=== PATIENT | male | born 1965 | race Caucasian/White ===

== ENCOUNTER 2017-07-21 11:23 | Outpatient (CLI) | payer MEDICARE ==
[2017-07-21 12:05] LABS: #Basophils 0.2 thou/uL (0.0-0.2); #Eosinphils 0.2 thou/uL (0.0-0.7); #Monocytes 0.5 thou/uL (0.11-0.59); #Neutrophils 4.1 thou/uL (1.40-6.50); %Eosinophils 2.7 % (0.0-10.0); %Lymphocytes 38.2 % (21.0-51.0); %Monocytes 5.7 % (0.0-10.0); %Neutrophils 51.4 % (42.0-75.0); Hemoglobin 14.4 g/dL (14.0-18.0); Mean Corpuscular HGB CONC 31.5 g/dL (32.0-36.0); Mean Corpuscular Hemoglobin 27.5 pg (27.0-31.0); Mean Corpuscular Volume 87.5 fl (80.0-94.0); Platelet Count 261 thou/uL (130-400); Red Blood Cell (RBC) Count 5.23 mill/uL (4.70-6.10); White Blood Cell (WBC) Count 7.9 thou/uL (4.8-10.8)
[2017-07-21 12:24] LABS: ALT (SGPT) 92 U/L (8-55); AST (SGOT) 54 U/L (5-34); Albumin 4.2 g/dL (3.5-5.0); Alkaline Phosphatase 65 U/L (40-150); Anion Gap 10 mmol/L (10-20); BUN (Urea Nitrogen) 13 mg/dL (8.4-25.7); Bilirubin, Total 0.4 mg/dL (0.2-1.2); Calc. Creatinine Clearance 0 mL/min (70-130); Calcium 9.4 mg/dL (7.8-10.44); Carbon Dioxide 28 mmol/L (22-29); Cardiac Risk 4.3 (Less than 4.5); Chloride 106 mmol/L (98-107); Cholesterol 153 mg/dl (< 200 Desired); Estimated GFR-MDRD 87; Globulin 2.9 g/dL (2.4-3.5); Glucose 107 mg/dL (70-105); HDL Cholesterol 36 mg/dL (>60 Neg Risk); LDL Cholesterol, Calculated 95 mg/dL; Lipase 16 U/L (8-78); Potassium 4.6 mmol/L (3.5-5.1); Protein, Total 7.1 g/dL (6.0-8.3); Sodium 139 mmol/L (136-145); Triglycerides 108 mg/dL (Less than 150)
== END 2017-07-21 11:24 | disposition home or self-care (01) ==
LOC: MADLABBHPM 11:23
PROVIDERS: ATTEND Family Medicine
DX: E03.9 Hypothyroidism, unspecified (principal); I10 Essential (primary) hypertension; K52.9 Noninfective gastroenteritis and colitis, unspecified
CPT/HCPCS: 36415; 80053; 80061; 83690; 84443; 85025

== ENCOUNTER 2017-10-16 15:03 | Outpatient (CLI) | payer MEDICARE ==
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
== END 2017-10-16 15:04 | disposition home or self-care (01) ==
LOC: MADRAD 15:03
PROVIDERS: ATTEND Family Medicine
DX: S89.91XA Unspecified injury of right lower leg, initial encounter (principal); M25.461 Effusion, right knee

== ENCOUNTER 2018-03-09 09:12 | Outpatient (CLI) | payer MEDICARE ==
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
== END 2018-03-09 09:13 | disposition home or self-care (01) ==
LOC: MADLABBHPM 09:12
PROVIDERS: ATTEND Family Medicine
DX: M25.532 Pain in left wrist (principal)
CPT/HCPCS: 36415; 84550; 85652

== ENCOUNTER 2018-04-12 11:32 | Outpatient (CLI) | payer MEDICARE ==
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
== END 2018-04-12 11:33 | disposition home or self-care (01) ==
LOC: MADRAD 11:32
PROVIDERS: ATTEND Family Medicine
DX: S69.91XA Unspecified injury of right wrist, hand and finger(s), initial encounter (principal); M19.041 Primary osteoarthritis, right hand

== ENCOUNTER 2020-08-02 21:06 | Emergency (ER) | payer MEDICARE ==
[~2020-08-02 21:06] MED LIST: Iopamidol 370 76% 100 ML VIAL ONE
--- NOTE | 2020-08-02 22:03 | RAD ---
TWO VIEWS CHEST: 08/02/20 PROVIDED CLINICAL HISTORY: Cough. FINDINGS: No comparisons. The cardiac and mediastinal silhouette is within normal limits. No focal consolidation, pleural fluid or pneumothorax apparent. IMPRESSION: No evidence for an acute cardiopulmonary process. POS: AXEL
[2020-08-02 22:05] LABS: #Basophils 0.2 thou/uL (0.0-0.2); #Eosinphils 0.4 thou/uL (0.0-0.7); #Lymphocytes 2.7 thou/uL (1.20-3.40); #Monocytes 0.6 thou/uL (0.11-0.59); #Neutrophils 3.3 thou/uL (1.40-6.50); %Basophils 2.1 % (0.0-1.0); %Eosinophils 6.3 % (0.0-10.0); %Lymphocytes 38.4 % (21.0-51.0); %Monocytes 7.7 % (0.0-10.0); %Neutrophils 45.5 % (42.0-75.0); Hemoglobin 15.1 g/dL (14.0-18.0); Mean Corpuscular HGB CONC 33.9 g/dL (32.0-36.0); Mean Corpuscular Hemoglobin 28.2 pg (27.0-31.0); Mean Corpuscular Volume 83.2 fL (78.0-98.0); Mean Platelet Volume 8.2 fL (7.4-10.4); Platelet Count 283 thou/uL (130-400); RBC Distribution Width 11.6 % (11.5-14.5); Red Blood Cell (RBC) Count 5.37 mill/uL (4.70-6.10); White Blood Cell (WBC) Count 7.1 thou/uL (4.8-10.8)
[2020-08-02 22:07] LABS: INR-International Normal Ratio 0.9; PTT 27.1 sec (22.9-36.1); Prothrombin Time 12.5 sec (12.0-14.7)
[2020-08-02 22:17] LABS: ALT (SGPT) 61 U/L (8-55); AST (SGOT) 38 U/L (5-34); Alkaline Phosphatase 71 U/L (40-110); Anion Gap 17 mmol/L (10-20); BUN (Urea Nitrogen) 13 mg/dL (8.4-25.7); Bilirubin, Total 0.2 mg/dL (0.2-1.2); Calc. Creatinine Clearance 0 mL/min (70-130); Calcium 8.8 mg/dL (7.8-10.44); Carbon Dioxide 23 mmol/L (22-29); Chloride 106 mmol/L (98-107); Estimated GFR-MDRD 81; Globulin 2.6 g/dL (2.4-3.5); Glucose 122 mg/dL (70-105); Potassium 3.8 mmol/L (3.5-5.1); Protein, Total 6.6 g/dL (6.0-8.3); Sodium 142 mmol/L (136-145)
--- NOTE | 2020-08-03 05:41 | CT ---
CT CHEST WITH IV CONTRAST: 08/02/20 PROVIDED CLINICAL HISTORY: Hemoptysis. FINDINGS: The heart, pericardium, and great vessels demonstrate an unremarkable CT appearance with the exceptio n of coronary calcium. There is no evidence for thoracic lymph node enlargement. The airway appears p atent and of normal caliber. The lungs are free of significant opacity. There is no pleural fluid or pneumothorax apparent. The visualized portions of the upper abdomen demonstrate an exophytic cystic s tructure partially visualized arising from the posterior margin of the right kidney, with Hounsfield units not typical for a simple cyst. This may reflect a proteinaceous cyst. Other etiologies are no t excluded. The osseous structures demonstrate no concerning lytic or blastic lesions. There is a 2.2 cm right adrenal nodule, incompletely characterized on the basis of this study, but statistically an adenoma. There is a small fat containing Bochdalek hernia on the right. IMPRESSION: 1. No evidence for an acute process involving the chest. 2. Coronary calcium. 3. Incompletely characterized exophytic right renal hypodensity for which nonemergent follow-up renal ultrasound is recommended. POS: AXEL
== END 2020-08-02 23:49 | disposition home or self-care (01) ==
LOC: MADERS 21:06
DX: R04.2 Hemoptysis (principal); E03.9 Hypothyroidism, unspecified; K21.9 Gastro-esophageal reflux disease without esophagitis; E78.5 Hyperlipidemia, unspecified; I10 Essential (primary) hypertension; G89.29 Other chronic pain; F41.9 Anxiety disorder, unspecified; F32.9 Major depressive disorder, single episode, unspecified; F17.210 Nicotine dependence, cigarettes, uncomplicated; Z71.6 Tobacco abuse counseling
CPT/HCPCS: 71046; 71260; 80053; 83605; 85025; 85610; 85730; 99406; Q9967

== ENCOUNTER 2020-08-29 09:35 | Outpatient (CLI) | payer MEDICARE ==
--- NOTE | 2020-08-29 10:35 | ULT ---
Bilateral renal ultrasound CLINICAL INDICATION: Renal mass seen on CT thorax. COMPARISON: CT thorax on 08/02/2020 FINDINGS: Right kidney: There are 2 exophytic hypoechoic cystic-appearing lesions posterior aspect midportion i nferior pole right kidney measuring 2.3 cm and 2.1 cm in greatest dimensions respectively. There is no evidence of hydronephrosis or renal calculus.The right kidney measures 12.4 cm x 5.3 cm. Left kidney: Small 1.5 cm hypoechoic lesion is seen in the midportion left kidney with suggestion of posterior acoustic enhancement. No renal calculus or hydronephrosis is seen.The left kidney measures 12.2 cm x 5.3 cm. Urinary bladder: Within normal limits for degree of distention. Prevoid urinary bladder volume is 99 mL with postvoid urinary bladder volume of 2.2 mL. The limited visualized right hepatic lobe demonstrates increased echogenicity suggesting fatty infilt ration. IMPRESSION: 1. Hypoechoic cystic lesions involving each kidney. These lesions most likely represent renal cysts a nd possibly proteinaceous cysts given that there is not a completely anechoic appearance. As result, short interval follow-up renal sonogram in 4 months is recommended versus follow-up CT scan a bdomen with and without IV contrast. 2. No evidence of hydronephrosis. 3. Mild fatty infiltration of the visualized right hepatic lobe.
== END 2020-08-29 09:36 | disposition home or self-care (01) ==
LOC: MADULT 09:35
PROVIDERS: ATTEND Family Medicine
DX: N28.89 Other specified disorders of kidney and ureter (principal); K76.0 Fatty (change of) liver, not elsewhere classified
CPT/HCPCS: 76770

== ENCOUNTER 2020-10-22 11:57 | Emergency (ER) | payer MEDICARE ==
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
== END 2020-10-22 14:25 | disposition home or self-care (01) ==
LOC: MADERS 11:57
DX: S63.501A Unspecified sprain of right wrist, initial encounter (principal); I10 Essential (primary) hypertension; K21.9 Gastro-esophageal reflux disease without esophagitis; E03.9 Hypothyroidism, unspecified; M79.7 Fibromyalgia; F17.210 Nicotine dependence, cigarettes, uncomplicated; W17.89XA Other fall from one level to another, initial encounter

== ENCOUNTER 2021-02-15 09:06 | Emergency (ER) | payer OTHER, SELFPAY ==
[2021-02-15] MEDS ORDERED: Clindamycin 150 MG CAP ONE (09:38)
[2021-02-15] MEDS ORDERED: Ondansetron ODT 4 MG TAB ONE (09:38)
[2021-02-15] MEDS ORDERED: Ketorolac Tromethamine 30 MG/ML VIAL ONE (09:38)
[2021-02-15] MEDS ORDERED: Triple Antibiotic Oint 1 GM Packet ONE (10:04)
== END 2021-02-15 10:25 | disposition home or self-care (01) ==
LOC: MADERS 09:06
DX: S51.832A Puncture wound without foreign body of left forearm, initial encounter (principal); S81.832A Puncture wound without foreign body, left lower leg, initial encounter; E03.9 Hypothyroidism, unspecified; K21.9 Gastro-esophageal reflux disease without esophagitis; E78.5 Hyperlipidemia, unspecified; I10 Essential (primary) hypertension; M79.7 Fibromyalgia; F17.210 Nicotine dependence, cigarettes, uncomplicated; Z79.899 Other long term (current) drug therapy; W54.0XXA Bitten by dog, initial encounter
CPT/HCPCS: 96372; 99283; J1885; Q0162

== ENCOUNTER 2021-04-02 07:43 | Outpatient (CLI) | payer MEDICARE | END 2021-04-02 07:44 | disposition home or self-care (01) | LOC: MADULT 07:43 | PROVIDERS: ATTEND Family Medicine | DX: N28.1 Cyst of kidney, acquired (principal); L03.116 Cellulitis of left lower limb | CPT/HCPCS: 76770; 76999 ==

== ENCOUNTER 2021-12-19 08:34 | Outpatient (CLI) | payer MEDICARE, OTHER | END 2021-12-19 08:35 | disposition home or self-care (01) | LOC: MADLAB 08:34 → MADRAD 08:35 | PROVIDERS: ATTEND Family Medicine | DX: M25.511 Pain in right shoulder (principal); M54.12 Radiculopathy, cervical region ==

== ENCOUNTER 2022-09-13 13:16 | Emergency (ER) | payer MEDICARE | END 2022-09-13 14:42 | disposition left against medical advice (07) | LOC: MADERS 13:16 | DX: Z53.21 Procedure and treatment not carried out due to patient leaving prior to being seen by health care provider (principal) ==

== ENCOUNTER 2022-09-14 11:15 | Emergency (ER) | payer MEDICARE | END 2022-09-14 12:55 | disposition home or self-care (01) | LOC: MADERS 11:15 | DX: S93.602A Unspecified sprain of left foot, initial encounter (principal); I10 Essential (primary) hypertension; E11.9 Type 2 diabetes mellitus without complications; E78.5 Hyperlipidemia, unspecified; E66.9 Obesity, unspecified; F17.210 Nicotine dependence, cigarettes, uncomplicated; W22.8XXA Striking against or struck by other objects, initial encounter ==

== ENCOUNTER 2023-04-08 09:52 | Outpatient (CLI) | payer MEDICARE | END 2023-04-08 09:53 | disposition home or self-care (01) | LOC: MADRAD 09:52 | PROVIDERS: ATTEND Internal Medicine | DX: J45.50 Severe persistent asthma, uncomplicated (principal) | CPT/HCPCS: 71046 ==

== ENCOUNTER 2024-03-30 09:46 | Emergency (ER) | payer MEDICARE ==
[2024-03-30 10:50] LABS: #Basophils 0.2 thou/uL (0.0-0.2); #Eosinphils 0.2 thou/uL (0.0-0.7); #Lymphocytes 3.6 thou/uL (1.20-3.40); #Monocytes 0.8 thou/uL (0.11-0.59); #Neutrophils 7.2 thou/uL (1.40-6.50); %Basophils 1.8 % (0.0-1.0); %Eosinophils 1.3 % (0.0-10.0); %Lymphocytes 29.8 % (21.0-51.0); %Monocytes 6.4 % (0.0-10.0); %Neutrophils 60.6 % (42.0-75.0); Hematocrit 58.4 % (42.0-52.0); Hemoglobin 17.3 g/dL (14.0-18.0); Mean Corpuscular HGB CONC 29.6 g/dL (32.0-36.0); Mean Corpuscular Hemoglobin 26.3 pg (27.0-31.0); Mean Corpuscular Volume 89.1 fl (78.0-98.0); Mean Platelet Volume 7.5 fL (7.4-10.4); Platelet Adequacy Comment Appears Adequate; Platelet Count 243 10x3/uL (130-400); RBC Distribution Width 12.3 % (11.5-14.5); Red Blood Cell (RBC) Count 6.56 mill/uL (4.70-6.10); White Blood Cell (WBC) Count 11.9 10x3/uL (4.8-10.8)
[2024-03-30 10:51] LABS: ALT (SGPT) 54 U/L (8-55); AST (SGOT) 30 U/L (5-34); Albumin 4.3 g/dL (3.5-5.0); Alkaline Phosphatase 66 U/L (40-110); Anion Gap 16 mmol/L (10-20); BUN (Urea Nitrogen) 14 mg/dL (8.4-25.7); Bilirubin, Total 0.4 mg/dL (0.2-1.2); Calc. Creatinine Clearance 0 mL/min (70-130); Calcium 9.3 mg/dL (7.8-10.44); Carbon Dioxide 19 mmol/L (22-29); Chloride 109 mmol/L (98-107); Estimated GFR 95; Globulin 2.7 g/dL (2.4-3.5); Glucose 95 mg/dL (70-105); Lipase 42 U/L (8-78); Potassium 3.8 mmol/L (3.5-5.1); Sodium 140 mmol/L (136-145)
[2024-03-30 10:55] LABS: MDiff Complete? YES
[2024-03-30 10:57] LABS: Bilirubin Negative (Negative); Blood, Urine Negative (Negative); Clarity Clear (Clear); Glucose, Urine (Dipstick) >=1000 mg/dL (Negative); Ketone, Urine Negative (Negative); Leukocyte Negative (Negative); Nitrite Negative (Negative); Protein, Urine (Dipstick) Negative (Neg-Trace); Urobilinogen 0.2 mg/dL (Less than 2); pH, Urine 5.5 (5.0-9.0)
[2024-03-30 11:02] LABS: RBC/HPF None Seen HPF (0-3)
[2024-03-30 11:03] LABS: Bacteria/HPF Rare-Few HPF (None Seen); CAUTI Indications for Culture Pelvic or flank pain; Squamous Epithelial 0-3 HPF (0-3); Urine Culture Reflex No No; WBC/HPF 0-3 HPF (0-3)
== END 2024-03-30 12:20 | disposition home or self-care (01) ==
LOC: MADERS 09:46
DX: K52.9 Noninfective gastroenteritis and colitis, unspecified (principal); K29.70 Gastritis, unspecified, without bleeding; R39.16 Straining to void; E11.9 Type 2 diabetes mellitus without complications; E78.5 Hyperlipidemia, unspecified; I10 Essential (primary) hypertension; K21.9 Gastro-esophageal reflux disease without esophagitis; Z79.899 Other long term (current) drug therapy
CPT/HCPCS: 71046; 74177; 80053; 81001; 83690; 84443; 85025; 85379; 93005; 94760; Q9967

== ENCOUNTER 2025-01-02 08:02 | Outpatient (CLI) | payer MEDICARE, BC, OTHER | END 2025-01-02 08:03 | disposition home or self-care (01) | LOC: MADLAB 08:02 | PROVIDERS: ATTEND Physician Assistant Surgical | DX: M43.16 Spondylolisthesis, lumbar region (principal); M48.062 Spinal stenosis, lumbar region with neurogenic claudication; M47.816 Spondylosis without myelopathy or radiculopathy, lumbar region; M47.817 Spondylosis without myelopathy or radiculopathy, lumbosacral region; Z98.1 Arthrodesis status | CPT/HCPCS: 72100 ==

== ENCOUNTER 2025-07-24 14:14 | Emergency (ER) | payer MEDICARE | END 2025-07-24 16:35 | disposition home or self-care (01) | LOC: MADERS 14:14 | DX: S43.62XA Sprain of left sternoclavicular joint, initial encounter (principal); M94.0 Chondrocostal junction syndrome [Tietze]; E11.9 Type 2 diabetes mellitus without complications; I10 Essential (primary) hypertension; F17.210 Nicotine dependence, cigarettes, uncomplicated; X50.0XXA Overexertion from strenuous movement or load, initial encounter | CPT/HCPCS: 99283 ==